=== PATIENT | male | born 1970 | race Caucasian/White ===

== ENCOUNTER → 2016-06-06 | Outpatient (CLI) | payer OTHER ==
[~2016-06-06] MED LIST: COLCRYS0.6 MG PO; FISH OIL 1,0001 EAC7 PO; HYDROCODON-ACE1 EAC7 PO; NORVASC2.5 MG PO; OMEPRAZOLE20 M2 PO; SYNTHROID200 MCG PO; SYNTHROID50 MCG PO; TYLENOL REGULA325 MG PO
== END | disposition home or self-care (01) ==
LOC: CDC 10:18
DX: Z01.810 Encounter for preprocedural cardiovascular examination (principal); R00.1 Bradycardia, unspecified; S62.612A Displaced fracture of proximal phalanx of right middle finger, initial encounter for closed fracture; M79.644 Pain in right finger(s)
CPT/HCPCS: 93000

== ENCOUNTER → 2016-08-06 | Outpatient (CLI) | payer OTHER | END | disposition home or self-care (01) | LOC: NUC 07:50 | DX: C73 Malignant neoplasm of thyroid gland (principal); E89.0 Postprocedural hypothyroidism | CPT/HCPCS: 78018; 78999; A9528 ==